=== PATIENT | female | born 1950 | race Caucasian/White ===

== ENCOUNTER 2019-10-05 06:23 | Emergency (ER) | payer OTHER ==
[~2019-10-05] VITALS: Ht 160 cm; Wt 66.2 kg
[~2019-10-05 06:23] MED LIST: ASPIR 8181 MG; ATENOLOL25 MG; CIPRO500 MG/5 M; INTESTINEX1 CA1 PO; METRONIDAZOLE250 MG; ORPHENADRINE C100 MG PO; PROTONIX40 MG; PROTONIX40 MG PO; TRAMADOL HCL-AP1 TAB PO; UN; ZETIA10 MG
[2019-10-05] MEDS ORDERED: PLAVIX75 MG (06:30)
[2019-10-05] MEDS ORDERED: LYRICA300 MG (06:31)
[2019-10-05] MEDS ORDERED: TOPROL XL50 M1 (06:32)
[2019-10-06] MEDS ORDERED: LYRICA200 MG PO (09:50)
== END 2019-10-05 09:56 | disposition home or self-care (01) ==
LOC: ER 06:23
DX: R19.7 Diarrhea, unspecified (principal)

== ENCOUNTER 2019-10-06 09:11 | Emergency (ER) | payer OTHER ==
[~2019-10-06] VITALS: Ht 160 cm; Wt 70.3 kg
[~2019-10-06 09:11] MED LIST changes: +LYRICA300 MG; +PLAVIX75 MG; +TOPROL XL50 M1
[2019-10-06] MEDS ORDERED: LYRICA200 MG PO (09:50)
== END 2019-10-06 16:16 | disposition home or self-care (01) ==
LOC: ER 09:11
DX: N39.0 Urinary tract infection, site not specified (principal); D69.49 Other primary thrombocytopenia; K76.89 Other specified diseases of liver

== ENCOUNTER 2025-06-22 10:25 | Outpatient (CLI) | payer OTHER ==
[~2025-06-22 10:25] MED LIST changes: +LYRICA200 MG PO
== END 2025-06-22 10:33 | disposition home or self-care (01) ==
LOC: TOM 10:25
PROVIDERS: ATTEND Internal Medicine Gastroenterology
DX: Z12.11 Encounter for screening for malignant neoplasm of colon (principal)